=== PATIENT | male | born 1995 | race Caucasian/White ===

== ENCOUNTER 2017-07-23 12:34 | Emergency (ER) | payer OTHER ==
[2017-07-23 12:53] VITALS: BP 121/72
[2017-07-23] MEDS ORDERED: Diphtheria,Pertussis(Acell),Tetanus Vaccine 0.5 ML SDV IM ONE (13:11)
[2017-07-23] MEDS ORDERED: Lidocaine 1% with EPINEPHrine 1:100,000 20 ML MDV INJECT ONE (13:11)
--- NOTE | 2017-07-23 13:16 | EDM.PDOC ---
ED HPI GENERAL MEDICAL PROBLEM - General Chief Complaint: Head Injury Stated Complaint: HEAD INJURY Time Seen by Provider: 07/23/17 12:55 Source of Information: Reports: Patient History Limitations: Reports: No Limitations - History of Present Illness INITIAL COMMENTS - FREE TEXT/NARRATIVE: Patient is a 22-year-old male who presents to the ED complaining of a laceration to his forehead. Patient works as a dairy farmworker on a ranch. While closing a gate a cow came back at him hitting the gate causing the gate to hit him in the head. There was no loss of consciousness. Bleeding was controlled with direct pressure. Patient denies any additional pain to his head, neck, or back. Discomfort vision changes. There is no nausea vomiting. No numbness and tingling to his extremities. Tetanus status is not up-to-date. Patient has no past medical history and currently taking no medications. He denies any surgical history. - Related Data Allergies Allergy/AdvReac Type Severity Reaction Status Date / Time No Known Allergies Allergy Verified 07/23/17 12:53 Home Meds: Home Meds Cephalexin [Keflex] 500 mg PO TID #15 capsule 07/23/17 [Rx] ED ROS GENERAL - Review of Systems Review Of Systems: See Below Constitutional: Reports: No Symptoms HEENT: Reports: Other (4 cm deep laceration to the midportion of his forehead. With no ecchymosis and/or bony abnormality is. Mild swelling present. No bleeding present.) Respiratory: Reports: No Symptoms Cardiovascular: Reports: No Symptoms Musculoskeletal: Denies: Neck Pain, Back Pain Neurological: Denies: Headache, Numbness, Tingling ED EXAM, HEAD INJURY - Physical Exam Exam: See Below Exam Limited By: No Limitations General Appearance: Alert, WD/WN, No Apparent Distress Head: Other (4 cm deep laceration to the middle aspect of his forehead with no bleeding, ecchymosis, bony abnormalities.) Nexus Criteria: No: Posterior, Midline Cervical Tenderness, Evidence of Intoxication, Altered Level of Consciousness, Focal Neurological Deficit, Painful Distraction Injuries Eyes: Bilateral Eye: EOMI, PERRL Ears: Normal External Exam, Hearing Grossly Normal Nose: Normal Inspection Throat/Mouth: Normal Voice, No Airway Compromise Neck: Non-Tender, Full Range of Motion, Normal Alignment, Normal Inspection Respiratory: No Respiratory Distress, Lungs Clear, Normal Breath Sounds, No Accessory Muscle Use, Chest Non-Tender Cardiovascular: Normal Peripheral Pulses, Regular Rate, Rhythm, No Murmur Neurologic: court stenographer II-XII nml As Tested, No Motor/Sensory Deficits, Alert, Normal Mood/Affect, Oriented x 3 Skin: Normal Color, Warm/Dry ED LACERATION/WOUND & AMPARO PROC - Laceration/Wound Repair Forehead Lac/wound length in cm: 4 Appearance: Subcutaneous, Clean Distal NVT: Neuro & Vascular Intact Anesthetic Type: Local Local Anesthesia - Lidocaine (Xylocaine): 1% with EPI Local Anesthetic Volume: 5cc Skin Prep: Chlorhexidine (Hibiciens), Saline, Sterile Drape Exploration/Debridement/Repair: Wound Explored, In a Bloodless Field, Explored to Base, No Foreign Material Found Closed with: Sutures (subcuticular), Steri-Strips Suture Size: other (5.0) # of Sutures: 1 (running) Suture Type: Running Suture Size: 4-0 # of Sutures: 4 Repaired with: Vicryl Drain Placement: No Sterile Dressing Applied: Nurse Tetanus Status Addressed: Yes Complications: No Course - Vital Signs Last Recorded V/S: Last Vital Signs Temp 97.3 F 07/23/17 12:48 Pulse 60 07/23/17 12:48 Resp 18 07/23/17 12:48 BP 121/72 07/23/17 12:48 Pulse Ox 100 07/23/17 12:48 - Orders/Labs/Meds Meds: Medications Discontinued Medications Generic Name Dose Route Start Last Admin Trade Name Cody PRN Reason Stop Dose Admin Cephalexin 500 mg 07/23/17 14:54 07/23/17 15:10 Keflex PO 07/23/17 14:55 500 mg ONETIME ONE Administration Diphtheria/Tetanus/Acell Pertussis 0.5 ml 07/23/17 13:11 07/23/17 13:35 Adacel IM 07/23/17 13:12 0.5 ml .ONCE ONE Administration Lidocaine/Epinephrine 20 ml 07/23/17 13:11 07/23/17 13:35 Xylocaine 1% With Epinephrine 1:100,000 INJECT 07/23/17 13:12 20 ml ONETIME ONE Administration - Re-Assessments/Exams Free Text/Narrative Re-Assessment/Exam: No CT of the head and/or neck to be obtained. Ordered lidocaine 1% with epi and adacel. Laceration closed with Vicryl subcutaneous and also subcuticular suture. This was performed since location of the laceration was to the forehead. If simple interrupted sutures were placed. Patient would have significant railroading scarring noted. Steristrips placed in addition to the above sutures. Sterile dressing placed per nursing staff. medications noted. Ordered Keflex 500 mg by mouth. We'll discharge patient home with instructions as documented. Departure - Departure Time of Disposition: 14:59 Disposition: Home, Self-Care 01 Condition: Good Clinical Impression: Forehead laceration Qualifiers: Encounter type: initial encounter Qualified Code(s): S01.81XA - Laceration without foreign body of other part of head, initial encounter - Discharge Information Prescriptions: Cephalexin [Keflex] 500 mg PO TID #15 capsule Instructions: Concussion, Adult, [id number], Facial or Scalp Contusion, Easy- to-Read Referrals: PCP,None [Primary Care Provider] - Forms: ED Department Discharge, ED Return to Work/School Form Additional Instructions: Cleanse site twice daily with soap and water. Pat dry. Reapply triple antibiotic ointment and dressing. Take the full course of keflex as prescribed. Take ibuprofen and tylenol in alternating fashion for pain. Allow steri strips to fall out on their own accord. Keep area clean and dry. Return to the E.D. if you develops increased redness, swelling, pain, or purulent drainage.
[2017-07-23] MEDS ORDERED: Cephalexin 500 MG Cap PO ONE (14:54)
== END 2017-07-23 15:13 | disposition home or self-care (01) ==
LOC: JD.ED 12:34
DX: S01.81XA Laceration without foreign body of other part of head, initial encounter (principal)
CPT/HCPCS: 12013; 90471; 90715; 99283; A9270; 12002; 99282-25